=== PATIENT | female | born 1990 | race Caucasian/White ===

== ENCOUNTER 2017-02-13 08:35 | Emergency (ER) | payer MEDICAID ==
[~2017-02-13] VITALS: Wt 89.0 kg
[~2017-02-13 08:35] MED LIST: OMEP20CA16 PO
[2017-02-13] MEDS ORDERED: ONDANSETRON 4 MG INJ IV STA (09:02)
[2017-02-13] MEDS ORDERED: morphine 4 MG/ML VIAL IV STA ×2 (09:02→09:55)
[2017-02-13] MEDS ORDERED: SOD CHLORIDE 0.9% 500 ML IV STA (09:02)
[2017-02-13 09:34] LABS: ADD SCAN DIFF NO
[2017-02-13 09:36] LABS: BASOPHIL # 0.1 10^3/ul (0.0-0.1); BASOPHILS % 0.3 % (0.0-2.0); EOSINOPHILS % 0.1 % (0.0-7.0); HEMATOCRIT 46.6 % (37.0-47.0); HEMOGLOBIN 15.3 g/dl (12.0-16.0); LYMPHOCYTES # 1.7 10^3/ul (0.8-2.9); LYMPHOCYTES % 9.9 % (15.0-51.0); MEAN CORPUSCULAR HEMOGLOBIN 25.8 pg (29.0-33.0); MEAN CORPUSCULAR HGB CONC 32.8 g/dl (32.0-37.0); MEAN CORPUSCULAR VOLUME 78.5 fl (82.0-101.0); MEAN PLATELET VOLUME 9.5 fl (7.4-10.4); MONOCYTE # 0.5 10^3/ul (0.3-0.9); MONOCYTES % 2.9 % (0.0-11.0); NEUTROPHIL # 15.1 10^3/ul (1.6-7.5); NEUTROPHILS % 86.2 % (39.0-77.0); PLATELET COUNT 448 10^3/UL (140-415); RED BLOOD COUNT 5.94 10^6/ul (4.20-5.40); WHITE BLOOD COUNT 17.5 10^3/ul (4.8-10.8)
[2017-02-13 09:49] LABS: INR 1.13; PROTIME 14.5 Sec (12.2-14.2); PT RATIO 1.1
[2017-02-13 09:54] LABS: ALBUMIN 4.9 g/dl (3.3-4.9); ALBUMIN/GLOBULIN RATIO 1.06; BILIRUBIN,INDIRECT 0.4 mg/dl (0-1.1); BILIRUBIN,TOTAL 0.4 mg/dl (0.2-1.3); CALCIUM 10.1 mg/dl (8.4-10.2); CREATININE 0.59 mg/dl (0.44-1.00); POTASSIUM 3.9 mmol/L (3.5-5.1); TOTAL PROTEIN 9.5 g/dl (6.1-8.1)
[2017-02-13] MEDS ORDERED: KETOROLAC 30 MG INJ IV STA (09:56)
--- NOTE | 2017-02-13 10:03 | RADRPT ---
PROCEDURE: CT Abdomen and pelvis without contrast. CLINICAL INDICATION: Nausea and vomiting and diarrhea for 3 days. Abdominal pain TECHNIQUE: CT scan of the abdomen and pelvis with contrast was performed on a multidetector high-r esolution CT scan. . Coronal and sagittal reformatted images were obtained from the axial source i mages. Standard CT scan of the abdomen pelvis without contrast protocols were performed. The total exam CTDI equals 23.63 mGy and the total exam DLP equals 1466.76 mGy-cm. One or more of the following dose reduction techniques were used: - Automated exposure control. - Adjustment of the mA and/or kV according to patient size. Use of iterative reconstruction technique. COMPARISON: None. FINDINGS: The appendix is unremarkable. The stomach, small bowel and large bowel are unremarkable. Negative for intra-abdominal free air, free fluid, abscesses or lymphadenopathy. The kidneys are normal in size without evidence of calcified renal calculi, hydronephrosis or intra renal masses bilaterally. The uterus is anteflexed and anteverted but otherwise unremarkable. No e vidence of adnexal masses. Urinary bladder is partially contracted but otherwise unremarkable. The gallbladder is unremarkable without biliary ductal dilation. The liver spleen pancreas and adre nal glands are normal size configuration without focal lesions. The lung bases are unremarkable. The osseous structures are unremarkable. The aorta is unremarkabl e. IMPRESSION: Normal CT scan of the abdomen pelvis. RPTAT:AAJJ Physician Austen Date Time Electronically viewed and signed by Physician Austen on 02/13/2017 10:03 BM/
[2017-02-13 10:04] LABS: ADD UMIC YES; URINE BILIRUBIN (Dip) NEGATIVE (NEGATIVE); URINE BLOOD (Dip) 1+ (NEGATIVE); URINE COLOR LT. YELLOW (YELLOW); URINE GLUCOSE (Dip) NEGATIVE (NEGATIVE); URINE KETONES (Dip) NEGATIVE (NEGATIVE); URINE LEUKOCYTE ESTERASE (Dip) NEGATIVE (NEGATIVE); URINE NITRITE (Dip) NEGATIVE (NEGATIVE); URINE TOTAL PROTEIN (Dip) TRACE (NEGATIVE); URINE UROBILINOGEN (Dip) 0.2 E.U./dL (0.1-1.0)
--- NOTE | 2017-02-13 10:19 | RADRPT ---
PROCEDURE: US Abdomen. CLINICAL INDICATION: abdominal pain TECHNIQUE: Multiple real-time images were acquired of the patient's right upper quadrant abdomen a nd retroperitoneum utilizing a high resolution transducer. COMPARISON: 02/13/2017 FINDINGS: The liver demonstrates slightly increased echogenicity. The liver is normal in size and no focal so lid lesions are seen. The liver measures 16.8 cm in length. The portal vein is patent with normal di rection of flow. No intrahepatic biliary dilatation is seen. Multiple calcified gallstones are identified within the gallbladder. There is no pericholecystic fl uid or gallbladder wall thickening. The common bile duct measures 8 mm in maximal dimension. The visualized portions of the pancreas are unremarkable. The tail of the pancreas is not seen. No free fluid is identified. The right kidney is normal in size, and demonstrate normal echogenicity and cortical thickness. The right kidney measures 10.7 cm in long dimension. There is no evidence of hydronephrosis. There are no kidney stones. RPTAT: AA IMPRESSION: Cholelithiasis with no evidence of gallbladder wall thickening or pericholecystic fluid. Mildly dilated CBD. Mild fatty infiltration of the liver. .Baljeet Juares MD, MD Date Time Electronically viewed and signed by .Baljeet Juares MD, on 02/13/2017 10:19 .S/
[2017-02-13 10:33] LABS: MUCUS,URINE MODERATE; SQUAMOUS EPITHELIAL CELL,UR MODERATE; URINE RBCS 0-2 /HPF (0)
[2017-02-13] MEDS ORDERED: HYDROmorphONE 1 MG/ML SYG IV STA (11:00)
[2017-02-13] MEDS ORDERED: HYDR-906 PO (11:01)
[2017-02-13] MEDS ORDERED: IBUP-1542 PO (11:01)
[2017-02-13 11:26] VITALS: BP 132/77; PULSE 86; RESP 20; TEMP 98.3
--- NOTE | 2017-02-13 12:44 | ERD ---
ER Documentation Chief Complaint Date/Time DATE: 02/13/17 TIME: 12:39 Chief Complaint R SIDED ABD PAIN X 3 DAYS WITH N/V HPI This patient is a 26-year-old female with no significant medical history presenting to the emergency department for right sided flank pain with slight right upper quadrant pain ongoing for the past 2 days but worsening. She states the pain is stabbing. She rates it a 10 out of 10 in severity. The patient has had similar symptoms in the past but they self resolved without intervention. She is unable to sleep secondary to pain. She also reports multiple episodes of nausea and 7 episodes of vomiting today. She took Tylenol with no relief of symptoms. No other symptoms to report at this time. ROS All systems reviewed and are negative except as per history of present illness. Medications Home Meds Active Scripts Ibuprofen* (Motrin*) 600 Mg Tab, 600 MG PO Q6, #30 TAB Prov:SILVER PARKS PA-C 02/13/17 Hydrocodone/Acetaminophen ([place] 5-325 Tablet) 1 Each Tablet, 1 TAB PO Q6H Y for PAIN, #10 TAB Prov:SILVER PARKS PA-C 02/13/17 Omeprazole* (Omeprazole*) 20 Mg Capsule., 20 MG PO QAM, #30 CAP Prov:NAKUL ARREOLA NP 06/14/16 Allergies Allergies: Coded Allergies: No Known Allergy (Unverified , 06/14/16) PMhx/Soc History of Surgery: No Anesthesia Reaction: No Hx Neurological Disorder: No Hx Respiratory Disorders: No Hx Cardiac Disorders: No Hx Psychiatric Problems: No Hx Miscellaneous Medical Probl: No Hx Alcohol Use: No Hx Substance Use: No Hx Tobacco Use: No Smoking Status: Never smoker FmHx Noncontributory for chief complaint Physical Exam Vitals Vital Signs Date Time Temp Pulse Resp B/P Pulse Ox O2 Delivery O2 Flow Rate FiO2 02/13/17 11:26 98.3 86 20 132/77 98 Room Air 02/13/17 08:37 98.0 82 18 173/92 99 Physical Exam Const: The patient appears to be in mild distress secondary to acute pain. Head: Atraumatic Eyes: Normal Conjunctiva ENT: Normal External Ears, Nose and Mouth. Neck: Full range of motion..~ No meningismus. Resp: Clear to auscultation bilaterally Cardio: Regular rate and rhythm, no murmurs Abd: Soft, there is tenderness palpation of the right upper quadrant, non distended. No rebound tenderness or guarding. Normal bowel sounds Skin: No petechiae or rashes Back: No midline or flank tenderness Ext: No cyanosis, or edema Neur: Awake and alert Psych: Normal Mood and Affect Result Diagram: 02/13/17 0910 02/13/17 0910 Results 24 hrs Laboratory Tests Test 02/13/17 09:10 White Blood Count 17.510^3/ul Red Blood Count 5.9410^6/ul Hemoglobin 15.3g/dl Hematocrit 46.6% Mean Corpuscular Volume 78.5fl Mean Corpuscular Hemoglobin 25.8pg Mean Corpuscular Hemoglobin Concent 32.8g/dl Red Cell Distribution Width 13.0% Platelet Count 26518^3/UL Mean Platelet Volume 9.5fl Neutrophils % 86.2% Lymphocytes % 9.9% Monocytes % 2.9% Eosinophils % 0.1% Basophils % 0.3% Nucleated Red Blood Cells % 0.0/100WBC Neutrophils # 15.110^3/ul Lymphocytes # 1.710^3/ul Monocytes # 0.510^3/ul Eosinophils # 0.010^3/ul Basophils # 0.110^3/ul Nucleated Red Blood Cells # 0.010^3/ul Prothrombin Time 14.5Sec Prothrombin Time Ratio 1.1 INR International Normalized Ratio 1.13 Activated Partial Thromboplast Time 30.0Sec Urine Color LT. YELLOW Urine Clarity HAZY Urine pH 6.5 Urine Specific [place] 1.015 Urine Ketones NEGATIVE Urine Nitrite NEGATIVE Urine Bilirubin NEGATIVE Urine Urobilinogen 0.2 E.U./dL Urine Leukocyte Esterase NEGATIVE Urine Microscopic RBC 0-2/HPF Urine Microscopic WBC 0-2/HPF Urine Squamous Epithelial Cells MODERATE Urine Mucus MODERATE Urine Hemoglobin 1+ Urine Glucose NEGATIVE% Urine Total Protein TRACE Sodium Level 143mmol/L Potassium Level 3.9mmol/L Chloride Level 106mmol/L Carbon Dioxide Level 24mmol/L Anion Gap 17 Blood Urea Nitrogen 10mg/dl Creatinine 0.59mg/dl Glucose Level 118mg/dl Calcium Level 10.1mg/dl Total Bilirubin 0.4mg/dl Direct Bilirubin 0.00mg/dl Indirect Bilirubin 0.4mg/dl Aspartate Amino Transf (AST/SGOT) 33IU/L Alanine Aminotransferase (ALT/SGPT) 46IU/L Alkaline Phosphatase 128IU/L Total Protein 9.5g/dl Albumin 4.9g/dl Globulin 4.60g/dl Albumin/Globulin Ratio 1.06 Lipase 37U/L Current Medications Medications (Trade) Dose Ordered Sig/Ramiro Route PRN Reason Start Time Stop Time Status Last Admin Dose Admin Sodium Chloride (NS) 500 ml @ 500 mls/hr Q1H STAT IV 02/13/17 09:02 02/13/17 10:01 DC 02/13/17 09:14 Morphine Sulfate (morphine) 4 mg ONCE STAT IV 02/13/17 09:02 02/13/17 09:05 DC 02/13/17 09:13 Ondansetron HCl (Zofran Inj) 4 mg ONCE STAT IV 02/13/17 09:02 02/13/17 09:05 DC 02/13/17 09:12 Morphine Sulfate (morphine) 4 mg ONCE STAT IV 02/13/17 09:55 02/13/17 09:58 DC Ketorolac Tromethamine (Toradol) 30 mg ONCE STAT IV 02/13/17 09:56 02/13/17 09:58 DC 02/13/17 10:12 Hydromorphone HCl (Dilaudid) 1 mg ONCE STAT IV 02/13/17 11:00 02/13/17 11:01 DC 02/13/17 11:03 Procedures/[facility] EMERGENCY DEPARTMENT COURSE / MEDICAL DECISION MAKING: This is a 26-year-old female who comes to the emergency room secondary to complaints of right-sided flank and right upper quadrant pain. The patient was given IV fluids, IV Zofran, IV morphine, IV Toradol, and IV Dilaudid in the department. On re-evaluation, the patient was feeling improved. Lab results reviewed and showed slight leukocytosis with left shift but not significant. AST and ALT were within normal limits. Urinalysis was not concerning for proteinuria or infection. All other lab studies showed no significant acute abnormalities. Radiology: PROCEDURE: US Abdomen. CLINICAL INDICATION: abdominal pain TECHNIQUE: Multiple real-time images were acquired of the patient's right upper quadrant abdomen and retroperitoneum utilizing a high resolution transducer. COMPARISON: 02/13/2017 FINDINGS: The liver demonstrates slightly increased echogenicity. The liver is normal in size and no focal solid lesions are seen. The liver measures 16.8 cm in length. The portal vein is patent with normal direction of flow. No intrahepatic biliary dilatation is seen. Multiple calcified gallstones are identified within the gallbladder. There is no pericholecystic fluid or gallbladder wall thickening. The common bile duct measures 8 mm in maximal dimension. The visualized portions of the pancreas are unremarkable. The tail of the pancreas is not seen. No free fluid is identified. The right kidney is normal in size, and demonstrate normal echogenicity and cortical thickness. The right kidney measures 10.7 cm in long dimension. There is no evidence of hydronephrosis. There are no kidney stones. RPTAT: AA IMPRESSION: Cholelithiasis with no evidence of gallbladder wall thickening or pericholecystic fluid. Mildly dilated CBD. Mild fatty infiltration of the liver. .Baljeet Juares MD, MD Date Time Electronically viewed and signed by .Baljeet Juares MD, MD on 02/13/2017 10: 19 .S/ CC: SILVER PARKS PA-C PROCEDURE: CT Abdomen and pelvis without contrast. CLINICAL INDICATION: Nausea and vomiting and diarrhea for 3 days. Abdominal pain TECHNIQUE: CT scan of the abdomen and pelvis with contrast was performed on a multidetector high-resolution CT scan. . Coronal and sagittal reformatted images were obtained from the axial source images. Standard CT scan of the abdomen pelvis without contrast protocols were performed. The total exam CTDI equals 23.63 mGy and the total exam DLP equals 1466.76 mGy- cm. One or more of the following dose reduction techniques were used: - Automated exposure control. - Adjustment of the mA and/or kV according to patient size. Use of iterative reconstruction technique. COMPARISON: None. FINDINGS: The appendix is unremarkable. The stomach, small bowel and large bowel are unremarkable. Negative for intra-abdominal free air, free fluid, abscesses or lymphadenopathy. The kidneys are normal in size without evidence of calcified renal calculi, hydronephrosis or intra renal masses bilaterally. The uterus is anteflexed and anteverted but otherwise unremarkable. No evidence of adnexal masses. Urinary bladder is partially contracted but otherwise unremarkable. The gallbladder is unremarkable without biliary ductal dilation. The liver spleen pancreas and adrenal glands are normal size configuration without focal lesions. The lung bases are unremarkable. The osseous structures are unremarkable. The aorta is unremarkable. IMPRESSION: Normal CT scan of the abdomen pelvis. RPTAT:AAJJ Physician Austen Date Time Electronically viewed and signed by Sarina Way Physician on 02/13/2017 10:03 BM/ CC: SILVER PARKS PA-C The primary diagnosis is flank pain. Secondary diagnosis is biliary colic. I have low suspicion for cholecystitis, bowel obstruction, mesenteric ischemia, peritonitis, pancreatitis, appendicitis, septicemia, or other emergent conditions at this time. Discharge: I have discussed the lab results and diagnostic findings with the patient and answered any questions or concerns. The patient was discharged with a prescription for ibuprofen and [place]. The patient was advised to followup with their PMD in 1-2 days and to return to the Emergency Department if there are any new or worsening symptoms. The patient understood and agreed with the diagnosis, treatment and plan. The patient is stable for discharge at this time. I discussed this case with Dr. Ray Ashraf, who agreed with the ED course. Departure Diagnosis: Primary Impression: Flank pain Additional Impression: Biliary colic Condition: Fair Patient Instructions: Biliary Colic With Gallstone (Confirmed) Referrals: [facility] YOU HAVE RECEIVED A MEDICAL SCREENING EXAM AND THE RESULTS INDICATE THAT YOU DO NOT HAVE A CONDITION THAT REQUIRES URGENT TREATMENT IN THE EMERGENCY DEPARTMENT. FURTHER EVALUATION AND TREATMENT OF YOUR CONDITION CAN WAIT UNTIL YOU ARE SEEN IN YOUR DOCTORS OFFICE WITHIN THE NEXT 1-2 DAYS. IT IS YOUR RESPONSIBILITY TO MAKE AN APPOINTMENT FOR FOLOW-UP CARE. IF YOU HAVE A PRIMARY DOCTOR --you should call your primary doctor and schedule an appointment IF YOU DO NOT HAVE A PRIMARY DOCTOR YOU CAN CALL OUR PHYSICIAN REFERRAL HOTLINE AT IF YOU CAN NOT AFFORD TO SEE A PHYSICIAN YOU CAN CHOSE FROM THE FOLLOWING [facility] CLINICS [facility] [address] [facility] [address] [facility] [address] [facility] [address] [facility]. [facility] [address] [facility] [facility] [facility] [address] [place] Additional Instructions: Follow up with your PCP within the next 1-3 days for a more thorough evaluation and a possible referral to a specialist. Return the the emergency department immediately if symptoms worsen or change. If you have any questions regarding medications, ask your pharmacist or us before you leave. If any adverse reactions, occur while taking your medications, discontinue the treatment and return to the emergency department immediately. If any new or worsening symptoms, uncontrolled fevers, or other unexplained symptoms occur, return to the emergency department immediately. Take your medications as directed, and complete the entire course of treatment. SILVER PARKS PA-C Feb 13, 2017 12:44
== END 2017-02-13 11:27 | disposition home or self-care (01) ==
LOC: FTE 08:35
DX: R10.11 Right upper quadrant pain (principal); K80.50 Calculus of bile duct without cholangitis or cholecystitis without obstruction; R11.2 Nausea with vomiting, unspecified
CPT/HCPCS: 74176; 76705; 80053; 81001; 81003; 83690; 85025; 85610; 85730; 87086; J1170; J1885; J2270; J2405; J7040; 36415; 96374; 96375